=== PATIENT | male | born 1945 | race Caucasian/White ===

== ENCOUNTER → 2024-05-20 15:32 | Outpatient (REF) | payer MEDICARE, BC, SELFPAY | LOC: RAD 15:32 | PROVIDERS: ATTENDING PHYSICIAN Family Medicine | DX: R91.1 Solitary pulmonary nodule (principal) | CPT/HCPCS: 71250 ==

== ENCOUNTER → 2024-09-05 15:17 | Outpatient (REF) | payer OTHER, SELFPAY | LOC: MRI 3T 15:17 | PROVIDERS: ATTENDING PHYSICIAN Psychiatry & Neurology Neurology; FAMILY PHYSICIAN Family Medicine | DX: F40.240 Claustrophobia (principal) | CPT/HCPCS: 70553; A9575 ==

== ENCOUNTER → 2024-09-23 11:41 | Outpatient (REF) | payer OTHER, SELFPAY | LOC: DHCBC/DCA 11:41 | PROVIDERS: ATTENDING PHYSICIAN Student in an Organized Health Care Education/Training Program; FAMILY PHYSICIAN Family Medicine | DX: R06.09 Other forms of dyspnea (principal) | CPT/HCPCS: 78452; 93017; A9500; J2785 ==

== ENCOUNTER 2024-10-10 06:38 | Day surgery (SDC) | payer OTHER, SELFPAY ==
[2024-10-10] VITALS (8 sets, daily range): BP systolic 95–129; BP diastolic 65–82; BMI 23.7
[2024-10-10 07:03] LABS: Hematocrit 43.7 % (39.0-52.0); Hemoglobin 15.2 g/dL (13.0-18.0); Mean Corp Hgb Conc. 34.8 g/dL (33.0-37.0); Mean Corpuscular Hgb 35.7 pg (27.0-31.0); Mean Corpuscular Volume 102.6 fL (80.0-94.0); Platelet Count 186 10^3/uL (130-400); Red Blood Cell Count 4.26 10^6/uL (4.70-6.10); Red Cell Dist. Width 12.5 % (11.5-14.5)
[2024-10-10 07:22] LABS: ALT (SGPT) 21 U/L (0-50); AST (SGOT) 23 U/L (17-59); Albumin 4.4 g/dl (3.5-5.0); Alkaline Phosphatase 46 U/L (38-126); Blood Urea Nitrogen 30 mg/dl (9-20); Calcium 9.5 mg/dl (8.4-10.2); Carbon Dioxide 31 mmol/L (22-30); Chloride 105 mmol/L (98-107); Glucose 95 mg/dl (70-99); Potassium 4.4 mmol/L (3.5-5.1); Sodium 144 mmol/L (135-145); Total Bilirubin 0.2 mg/dl (0.2-1.3); Total Protein 6.5 g/dl (6.3-8.2); eGFR > 60.00
[2024-10-10] MEDS: LOW STRENGTH ASPIRIN 81 MG PO (08:04)
[2024-10-10] MEDS: LOW STRENGTH ASPIRIN 243 MG PO (08:27)
--- NOTE | 2024-10-10 09:37 | ITS.CL.CATH ---
[employer] - Catheterization
Cardiac Catheterization
Procedure Report:
CARDIAC CATHETERIZATION REPORT
Date of Procedure: 09/09/2024
Referring: Charles Gamez MD
Indication: Coronary calcification with significant exertional dyspnea and COPD
�
HEMODYNAMIC DATA
AO: 118/68
LV: 118/17
�
LEFT VENTRICULOGRAPHY: Normal segmental wall motion with EF 62%
�
CORONARY ANGIOGRAPHY
Dominance: Right
Left Main: Normal
LAD: The LAD is moderately calcified in its proximal and midportion. There is 20% mid LAD stenosis.
Circumflex: 20-30% proximal circumflex stenosis past the takeoff of the small OM1 and proximal to the origin of the very large OM 2. There is 40-50% circumflex stenosis distal to the origin of the large OM 2 and proximal to the takeoff of the
medium distribution OM 3. There is a medium sized OM 4 before the circumflex continues in the AV groove to supply a tiny posterolateral
RCA: Dominant vessel with focal 20% proximal stenosis and otherwise trivial luminal irregularities
�
Closure Device: None-the procedure was performed via the right radial artery. The Kelby's test was normal prior to the procedure.
�
Radiation (mGy): 230
DAP (cm2.Gy): 18.1
Fluoroscopy time: 1.5 minutes
�
CONCLUSIONS
1:�Normal left ventricular function with EF 62%
2:�Mild CAD as described
3. Recommend aspirin 81 mg daily, statin to achieve LDL less than 70, and smoking cessation. He will need pulmonary evaluation and treatment for his COPD
�
�
Copy to: Charles Hudson MD, Kal Landaverde,
�
Renny Frias MD, [facility], [facility]
== END 2024-10-10 12:15 | disposition home or self-care (01) ==
LOC: CATH 06:38
PROVIDERS: ATTENDING PHYSICIAN Internal Medicine Cardiovascular Disease; FAMILY PHYSICIAN Family Medicine; OTHER PHYSICIAN Student in an Organized Health Care Education/Training Program
DX: I25.10 Atherosclerotic heart disease of native coronary artery without angina pectoris (principal); R06.09 Other forms of dyspnea; J44.9 Chronic obstructive pulmonary disease, unspecified; I10 Essential (primary) hypertension; E78.00 Pure hypercholesterolemia, unspecified; F17.210 Nicotine dependence, cigarettes, uncomplicated; Z79.82 Long term (current) use of aspirin
CPT/HCPCS: 80053; 85027; 93458; C1894; Q9967

== ENCOUNTER → 2025-07-03 12:37 | Outpatient (REF) | payer OTHER, SELFPAY | LOC: HWRAD 12:37 | PROVIDERS: ATTENDING PHYSICIAN Internal Medicine Critical Care Medicine; FAMILY PHYSICIAN Family Medicine | DX: R91.1 Solitary pulmonary nodule (principal); Z87.891 Personal history of nicotine dependence | CPT/HCPCS: 71250 ==